=== PATIENT | female | born 1970 | race Caucasian/White ===

== ENCOUNTER 2024-08-05 11:01 | Outpatient (CLI) | payer OTHER, SELFPAY ==
--- OUTSIDE RECORDS SUMMARY | 2024-08-05 11:52 | XMS_ITS | Clinical Summary ---
Author Organization [facility] Address [address] [place] [address] Care Team Providers Care Ladle Mechanic Name Role Phone PcpNerissa Primary Care-Im/Fm-Hayden Leonardo Primary Care Provider Unavailable Source Comments [facility],non-owned Affiliates and Associated Physician Practices is amultiple site organization consisting of ambulatory clinics and hospital sitesin [place], [place], [place] and [place]. This disclosure is being madepursuant to the Care Everywhere program and may not contain all information available regarding this patient. Last updated 18.[facility] Allergies Active Allergy Reactions Criticality Noted Date Comments Tramadol Nausea and/or Vomiting 06/19/2012 Hydrocodone-Acetaminophen Nausea and/or Vomiting 06/19/2012 Azithromycin 02/03/2013 Medications * Be aware that medications may not be up to date on this document. Alwaysverify current medications with the patient. Medication Sig Dispensed Refills Start Date End Date Status Multiple Vitamin (MULTIVITAMIN ADULT PO) Active Cyanocobalamin (B-12 PO) Active calcium 500 mg tablet Take 500 mg by mouth 2 times daily with morning and evening meal Active levothyroxine (Synthroid) 137 MCG tablet TAKE 1 TABLET BY MOUTH EVERY DAY 90 tablet 10/21/2022 Active Active Problems Problem Noted Date Diagnosed Date Class 2 severe obesity due t o excess calories with serious comorbidity and body mass index (BMI) of 39.0 to 39.9 in adult 08/01/2020 Hypothyroidism Essential hypertension Resolved Problems Problem Noted Date Diagnosed Date Resolved Date Vitamin D deficiency 12/08/2017 020 Benign hypertension 09/13/2015 08/02/19 21 Snoring 09/13/2015 01/04/2020 Overview (09/13/2015): Patient defers sleep study Essential hypertension 12/13/201409/12 Smoking history 12/13/2014 01/04/2020 Weight gain 03/08/2014 02/29/2016 Family history of diabetes mellitus (DM) 03/08/2014 01/04/2020 Vulvovaginal candidiasis 03/08/2014 Thyroid disorder 06/19/2012 08/19/2013 Immunizations Name Administration Dates Next Due HEP B VACCINE, ADULT 3 DOSE 10/14/2007, 8,04/08/2007 INFLUENZA VACCINE 02/16/2017,02/02/2016 MMR 04/01/2007 Family History Medical History Relation Name Comments Diabetes Father Heart Disease Father Triple CABG in 60's Hypertension Father Cancer - Other Mother cervical Diabetes Mother Hypertension Mother Cancer - Other Sister breast Relation Name Status Comments Father Mother Sister Social History Tobacco Use Types Packs/Day Years Used Date Smoking Tobacco: Former Cigarettes 0.5 20 Smokeless Tobacco: Never Alcohol Use Standard Drinks/Week Comments No 0 (1 standard drink = 0.6 oz pur e alcohol) PHQ-2 Answer Date Recorded PHQ2 TOTAL SCORE 0 01/02/2021 Sex and Gender Information Value Date Recorded Sex Assigned at Not on file Gender Identity Not on file Sexual Orientation Not on file Last Filed Vital Signs Vital Sign Reading Time Taken Comments Blood Pressure 114/80 11/06/2021 9:51 AM CDT Pulse 71 11/06/2021 9:51 AM CDT Temperature 36.6 C (97.8 F) 01/02/2021 8:15 AM CDT Respiratory Rate 20 08/01/2020 9:11 AM CDT Oxygen Saturation 100% 11/06/2021 9:51 AM CDT Inhaled Oxygen Concentration - - Weight 65.3 kg (144 lb) 11/06/2021 9:51 AM CDT Height 167.6 cm (5' 6 ) 01/02/2021 8:15 AM CDT Body Mass Index 23.24 01/02/2021 8:15 AM CDT Plan of Treatment Health Maintenance Due Date Last Done Comments COLOGUARD (AGES 45-75) - COLON CA SCREENING 1970 COLON MONITORING 1970 COLONOSCOPY - COLON CA SCREENING 1970 CT COLONOGRAPHY - COLON CA SCREENING 1970 Colorectal Cancer Screening 1970 FIT - COLON CA SCREENING 1970 FLEX SIG - COLON CA SCREENING 1970 HIV SCREENING 1985 DTAP/TDAP/TD VACCINES (1 - Tdap) 1989 MAMMOGRAM 10/23/2017 10/23/2016, 09/27, 09/13/2015 (Declined) PNEUMOCOCCAL VACCINE 50+ (1 of 1 - PCV) 01/02/2020 ZOSTER VACCINE (1 of 2) 01/02/2020 PAP SMEAR 03/30/2023 03/30/2020 (Done Outside Per Patient), 09/13/2015 (Declined) LIPID TESTING 12/25/2023 12/24/2018 (Done Outside Per Report), 09/24/2016, 12/13/2014, Additional history exists COVID-19 VACCINE ( season) 2023 DEPRESSION SCREENING 04/28/2024 INFLUENZA VACCINE (Season Ended) 2024 02/16/2017, 02/02/2016 HEPATITIS B VACCINE Completed 10/14/2007, 05/13/2007, 04/08/2007 HEPATITIS C SCREENING Discontinued HIB VACCINE Aged Out No longer eligi ble based on patient's age to complete this topic HPV VACCINE Aged Out No longer eligi ble based on patient's age to complete this topic MENINGOCOCCAL (Group B) VACCINE SHARED DECISION-MAKING Aged Out No longer eligible based on patient's age to complete this topic MENINGOCOCCAL GROUPS A/C/Y/W VACCINE Aged Out No longer eligible based on patient's age to complete this topic PNEUMOCOCCAL VACCINE Aged Out No long er eligible based on patient's age to complete this topic Procedures Procedure Name Priority Date/Time Associated Diagnosis Comments MAMMO BILAT SCREENING Routine 10/23/2016 Screening mammogram, encounter for LIPID PROFILE Routine 09/24/2016 Hypothyroidism due to acquired atrophy of thyroid Benign hypertension from Last 3 Months or Most Recently Relevant to Health Maintenance Results * MAMMO SCREENING DIGITAL IMAGE BILAT (10/23/2016) Anatomical Region Laterality Modality Breast Bilateral Mammography Steph Hidalgo PA-C MAMMO ORDERABLES * LIPID PROFILE (09/24/2016) Blood BLOOD SPECIMEN / Unknown 09/24/2016 Steph Hidalgo PA-C LAB - CHEMISTRY [facility] OTHER LAB from Last 3 Months or Most Recently Relevant to Health Maintenance Care Teams Ladle Mechanic Relationship Specialty Start Date End Date PcpNerissa Primary Care-Im/Fm-Hayden Leonardo PCP - General 07/05/24
[2024-08-05 13:18] LABS: Alanine Aminotransferase 20 U/L (6-35); Albumin Level 4.4 g/dL (3.5-5.1); Alkaline Phosphatase 77 U/L (38-126); Anion Gap 8 mmol/L (4-12); Aspartate Amino Transferase 24 U/L (14-36); Bilirubin,Total 0.6 mg/dL (0.2-1.3); Blood Urea Nitrogen 20 mg/dL (7-17); Calcium 9.2 mg/dL (8.4-10.2); Carbon Dioxide 30 mmol/L (22-30); Chloride 104 mmol/L (98-107); Estimated Glomerular Filt Rate > 60; Glucose 78 mg/dL (65-110); Potassium 4.1 mmol/L (3.4-5.0); Sodium 142 mmol/L (137-145)
[2024-08-05 15:56] LABS: Prealbumin 20.5 mg/dL (17.6-36.0)
[2024-08-05 16:10] LABS: Iron 103 ug/dL (37-170)
[2024-08-09 15:42] LABS: Vitamin B1 17 nmol/L (8-30)
== END 2024-08-05 11:02 | disposition home or self-care (01) ==
LOC: ANHLAB 11:05
PROVIDERS: Visit Provider Surgery Plastic and Reconstructive Surgery
DX: R63.4 Abnormal weight loss (principal)
CPT/HCPCS: 36415; 80053; 83540; 84134; 84425

== ENCOUNTER 2024-08-27 00:42 | Day surgery (SDC) | payer OTHER, SELFPAY ==
[2024-08-17 11:15] VITALS: BMI 20.9
--- NOTE | 2024-08-17 11:22 | PC.NURSE ---
Report to the Outpatient Waiting Room, entrance under the green pavilion located off [facility], at time _0600_ on date _[id number]_. Planned Procedure Time: _0730_.? Time changes happen often and if your time is changed the preop area will call you the afternoon before. - You and your visitor will be asked to self-screen and do not enter if you have any COVID symptoms. Please call surgeon if you need to reschedule. - A mask is optional within the hospital at this time. Patients may have clear liquids (water, carbonated beverages, clear teas, apple juice) until 3 hours prior to surgery with a maximum of 20 ounces. - No food from midnight until time of surgery and no smoking, or chewing tobacco (or any form of nicotine). No chewing gum, candy or mints. Take only the following medications with a SIP of water on the morning of surgery: ___Levothyroxine____ DO NOT STOP ANY OF YOUR OTHER PRESCRIPTION MEDICATIONS PRIOR TO SURGERY EXCEPT THE FOLLOWING Hold all vitamins and supplements for 3 days per anesthesiologist. Medications to discontinue per physician Date to take last [id number]___[phone] Please no make-up, nail portuguese, hairspray, perfume, deodorant, or body powder the day of surgery.? No jewelry (including any body piercings) or valuables the day of surgery, leave them at home.? Please take a shower or bath the night before, or the morning of, surgery with an antibacterial soap.? Wear comfortable, loose fitting clothing.? - Jewelry must be removed prior to entering the operating room.? Rings and piercings that are not removed may be cut off. - The hospital will not accept responsibility for valuables.? - Please leave all valuables, including medications, at home the day of surgery. If you are going home after surgery, a licensed spotter driver must drive you home.? - NO public transportation without another adult if you receive anesthesia. - We recommend that an adult stay with you for 24 hours following discharge. - We also recommend that you do not drive, make important decision, drink alcoholic beverages, or take any drugs that were not prescribed by your health care provider for at least 24 hours after your discharge time. Follow any additional instructions given to you from your surgeon. Telephone instructions given to __Fern__and asked if any additional questions and then verbalized understanding. Patient advised to call surgeon office or pre surgery nurse liaison [phone] if any additional questions.
--- NOTE | 2024-08-26 15:04 | P.PNAN_ITS ---
Anes - Initial Pre Proc Eval Procedure: Operation Date: 08/27/24 07:30 Proposed Procedures p Naomi Stahl Abdominoplasty with Belt Lipectomy with Liposuction - MD sally Khan Bilateral Breast Augmentation, - MD sally Khna Bilateral Breast Mastopexy with GalaFlex, Bra Roll Excision - Lm Isbell MD Date/Time: 08/26/24 15:04 Surgeon: Lm Isbell MD Pre Op Diagnosis: skiin laxity, micromastia, breast ptosis Patient Data Age: 54 Gender: F Height: 1.68 m Weight: 59 kg Allergies Allergy/AdvReac Type Severity Reaction Status Date / Time morphine Allergy Intermediate Rash Verified 08/27/24 07:18 Home Medications ?Medication ?Instructions ?Recorded ?Confirmed ?Type levothyroxine 137 mcg tablet 137 mcg PO DAILY 08/17/24 08/27/24 History dpyfvjbe-vxwjjcft-[id number] 45 mg-folic 1 cap PO DAILY 08/17/24 08/27/24 History acid 800 mcg-vit K 120 mcg capsule (Bariatric Multivitamins) Patient hx anesthesia problems: none Family hx anesthesia problems: none Results Review: All pre-operative results and documents have been reviewed as part of the pre- operative evaluation. PMFSH Social History Social History Smoking status: Never smoker Living arrangements: with family Spiritual care concerns: No Anes - Eval Final PreProcedure Day of Procedure 08/26/24 15:04 Patient weight: normal Heart: regular rate and rhythm Lungs: clear to auscultation Airway: Mallampati scale class II Neurological: alert and oriented Last oral intake: >/= 8 hours ASA classification: II Emergent: no Anesthetic plan: proceed Anesthesia type and monitoring: general ETT and standard monitoring Results Review: All pre-operative results and documents have been reviewed as part of the pre- operative evaluation. Informed Consent: The patient's anesthetic plan and its attendant risks and benefits were discussed with the patient/family/POA. Questions were solicited and answers provided to the satisfaction of the patient/family/POA.
[2024-08-27] VITALS (16 sets, daily range): BP systolic 111–145; BP diastolic 70–97; PULSE 63–115; RESP 13–20; TEMP 36.1–37.7; O2SAT 92–100; BMI 21.9
--- OUTSIDE RECORDS SUMMARY | 2024-08-27 00:45 | XMS_ITS | Clinical Summary ---
Author Organization [facility] Address [address] [place] [address] Care Team Providers Care Medical Billing Manager Name Role Phone PcpNerissa Primary Care-Im/Fm-Hayden Leonardo Primary Care Provider Unavailable Source Comments [facility],non-owned Affiliates and Associated Physician Practices is amultiple site organization consisting of ambulatory clinics and hospital sitesin [place], [place], [place] and [place]. This disclosure is being madepursuant to the Care Everywhere program and may not contain all information available regarding this patient. Last updated 18.[facility] Allergies Active Allergy Reactions Criticality Noted Date Comments Tramadol Nausea and/or Vomiting 06/19/2012 Hydrocodone-Acetaminophen Nausea and/or Vomiting 06/19/2012 Azithromycin 02/03/2013 Medications * Be aware that medications may not be up to date on this document. Alwaysverify current medications with the patient. 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 Care Teams Medical Billing Manager Relationship Specialty Start Date End Date Nerissa Hutchins Primary Care-Im/Milady Leonardo PCP - General 07/05/24
[2024-08-27] MEDS: LACTATED RINGERS 1,000 ML 30 ML IV CONT ×2 (06:25→16:35)
[2024-08-27 06:30] LABS: Urine Cotinine NEGATIVE
[2024-08-27 06:35] LABS: Hematocrit 43.3 % (37.0-47.0); Hemoglobin 13.9 g/dL (12.0-15.0)
[2024-08-27] MEDS: TRANEXAMIC ACID 1,000MG/ISO100 1,000 MG/100 ML BAG 200 MG IVPB (06:40)
--- NOTE | 2024-08-27 07:00 | WPDHPUPDATE1 ---
History and Physical Update Update Date/Time: 08/27/24 07:00 History and Physical has been reviewed, including an updated exam of the patient. There are NO changes in the patient's condition. Risks, benefits, and alternatives have been discussed and questions answered. Patient agrees to proceed with procedure.
--- NOTE | 2024-08-27 07:36 | P.OP_ITS ---
Procedure Note - Detailed Date of Procedure 08/27/24 Pre-op Diagnosis skiin laxity, micromastia, breast ptosis Post-op Diagnosis Same Procedure Performed 1. Bilateral augmentation mastopexy with Galaflex 2. Bra roll excision (upper back) 3. Yrmiw-aj-njq belt lipectomy with suction lipectomy Surgeon Lm Isbell MD Anesthesia General Findings Bilateral Genia Falk SoftTouch 290cc Right: REF# [id number] SN [id number] Left: REF# [id number] SN [id number] Tissue removed: 2,258 grams Lipoaspirate: 500 cc Description of Procedure They are here today for the above procedures. Previously and again today the risks, benefits, alternatives were discussed in extensive detail. I wanted them to be very realistic about the risks involved as well as expectations. We discussed aftercare and what to monitor for. I was very upfront about the risks of wound breakdown leading to loss of skin, open wounds, and need for additional procedures with permanent abdominal deformity. We discussed DVT/PE risks and management. Made sure answered all of their questions to their satisfaction today and consent was obtained. They were marked in the preoperative holding area with their verification. The patient was taken to the operating room. [facility] A Rodriguez catheter was started. Posterior Placed prone on the operating room table with care taken to protect from injury. Prepped and draped in a standard sterile fashion. A surgical time-out was taken. Stab incisions were made and tumescent solution was infiltrated. Once adequate time was allowed for hemostasis a 5mm basket and 4mm keisha cannula were utilized to complete suction lipectomy based on S.A.F.E. technique in multiple planes and passes. Suction lipectomy continued to result based on pre-operative planning, intra-operative observation, and rolling pinch test which were in full agreement. Bra roll excision A 10 blade was used to make the upper incision and dissection was continued inferior elevating what we necessary for closure. This was closed with 3 point suture with 2-0 Vicryl followed 2-0 PDO strattafix, 3-0 stratafix ,running subcuticular 4-0 Monocryl, and tissue glue. Laterally maritza were placed for turning. Posterior body lift A 10 blade was used to make the upper incision and dissection was continued inferior elevating what we necessary for closure. I placed patient in slight jackknife position and excised intervening tissue. This was closed with 3 point suture with 2-0 Vicryl followed 2-0 PDO strattafix, 3-0 stratafix ,running subcuticular 4-0 Monocryl, and tissue glue. Laterally maritza were placed for turning. Breast Patient was then placed supine with care taken to protect from injury. She was prepped and draped in a standard sterile fashion. Tumescent was utilized laterally to provide field block Tegaderm nipple Walden were placed. A 15 blade used to make an incision just superior to the inframammary fold leaving a cusp of de-epithelized tissue at the t junction. Dissection was continued until the chest wall as identified. I incised the pectoralis major along its inferior border and completely released the inferior border leaving the medial border intact. I created a subpectoral pocket in the appropriate dimensions based on our preoperative planning for the implant. I then copiously irrigated with saline solution and verified a strict hemostasis. Next the use a triple antibiotic and Betadine containing solution to irrigate the pocket. I washed my gloves with the triple antibiotic and Betadine solution. We washed the implant immediately upon opening it with this solution and only opened it when we needed it. I used implant funnel and no-touch technique. The implant was introduced into the pocket using the funnel. Galaflex was soaking on the back table in a betadine solution. Trimmed and placed into the pocket. Having verified positioning of the implant this was closed using 2-0 PDS. I tailor tacked the breast into position. Placed her in a sitting position. Verified the nipple-areolar location based on preoperative planning as well as intraoperative observations and measurements in full agreement. Suction lipectomy was completed laterally with a 4mm keisha cannula. This was based on preoperative planning, intraoperative observation, and rolling pinch which was in full agreement. She was placed supine. I de-epithelialized the pedicle. I then removed the inferior central portion of the breast need making sure the implant was well protected. I elevated medial and lateral tissue flaps as well for planned closure. I closed along the IMF with 2-0 Stratafix. Along the vertical with 2-0 PDS. I closed around the areola with 3-0 strata fix. 3-0 Monocryl along the vertical. 3-0 Stratafix along the IMF. I finally closed everything with running subcuticular 4-0 Monocryl and tissue glue. Brijjit's used for vertical incision. Abdomen I placed the patient in a flexed position to verify the upper and lower markings would reach. I then placed supine. A thorough abdominal examination was completed. Stab incisions were made and tumescent solution infiltrated. Stab incisions were made and tumescent solution was infiltrated. Once adequate time was allowed for hemostasis a 5mm basket and 4mm keisha cannula were uti lized to complete suction lipectomy based on S.A.F.E. technique in multiple planes and passes. Suction lipectomy continued to result based on pre-operative planning, intra-operative observation, and rolling pinch test which were in full agreement. A 10 blade was used to make the upper incision. I continued dissection down to the level of fascia. Elevated just what was necessary for repair of the diastasis. I then again flexed the bed to verify the upper skin flap would reach the lower markings without tension. Once verified I placed her supine once again and a 10 blade used to make the lower incision. I elevated up to level the umbilicus and left the umbilicus intact on a well-vascularized stalk. The intervening tissue was removed. A 2 mm blunt cannula with 0.5% bupivacaine was injected deep to the fascia bilaterally. I plicated the diastasis recti using 0 PDO Stratafix barbed suture. This was in 2 separate layers using 2 separate sutures as well. After the patient was flexed (below) plicated the fascia with 0 PDO Stratafix in two separate layers. This was both supraumbilical and infraumbilical. The patient was flexed and starting from superior to inferior began plication using 2-0 Vicryl to obliterate all space in a standard progressive tension fashion. At the umbilicus I marked out the location of the skin and inset this with 3-0 Monocryl and 4-0 Vicryl. I continued the remainder of the plication using 2-0 Vicryl until I reached my lower planned scar line. I trimmed any excess skin of the upper flap making sure this was a tension-free closure. 15 B culp drain was placed. I then approximated using a 3 point suture with 2-0 Vicryl followed by 2-0 PDO Stratafix, 3-0 Stratafix ,running subcuticular 4-0 Monocryl, and tissue glue. Fluffs, abdominal binder, and surgical bra were placed. The patient was transferred to the bed in a flexed position. [place] and taken to the PACU without difficulty. All instrument and sponge counts were correct at the end of the case. Estimated Blood Loss 150 Drains Yes (15 Kirt) Packing No Pathology None sent Complications No immediate complications Condition Stable Disposition PACU
[2024-08-27] MEDS: ceFAZolin 2 GM/D5W 50 ML 2 GM/50 ML BAG IVPB (07:40)
[2024-08-27] MEDS: NACL 0.9% IRRIG POUR BOTTLE 900 ML, GENTAMICIN SULFATE INJ 160 MG, ceFAZolin 2 GM, POVI... IRRIGATION (09:04)
[2024-08-27] MEDS: LACTATED RINGERS IRRIG 1,000 ML, LIDOCAINE 1% LOCAL INJ 50 ML, EPINEPHrine HCL INJ 1 MG... INFILTRATE (09:05)
[2024-08-27] MEDS: ceFAZolin SODIUM 1 GM VIAL 2 GM IV PUSH (11:48)
--- NOTE | 2024-08-27 18:50 | PC.NURSE ---
received report from PACU, Daya VERNON, @[phone] 08/27/24.
--- NOTE | 2024-08-27 20:00 | PC.NURSE ---
This patient, Ruby Jules, was admitted to [facility] Surg Room 303-01. Patient/family oriented to hospital policies and general routines including ID bracelet, bed and alarms, visiting hours, pain management, procedures, bathroom and other care routines, personal items, smoking policy, room service/diet, and visiting hours. Information on how to activate the Rapid Response Team has been discussed. Patient/Family are encouraged to report perceived risks to care and to ask questions if they do not understand what they are told or what they should do.
[2024-08-27 20:26] LABS: Mean Platelet Volume 9.1 fl (7.4-10.4); Platelet Count Result 206 k/mm3 (150-375)
[2024-08-27] MEDS: KETOROLAC 10 MG TABLET PO (20:55)
[2024-08-27] MEDS: ONDANSETRON INJ 4 MG/2 ML VIAL IV PUSH (20:58)
[2024-08-27] MEDS: LACTATED RINGERS 1,000 ML 125 ML IV CONT (21:02)
[2024-08-27] MEDS: carisoprodoL (*CRX) 350 MG TABLET PO (21:03)
[2024-08-27] MEDS: DOCUSATE SODIUM 100 MG CAPSULE PO (21:04)
[2024-08-27] MEDS: ENOXAPARIN 40 MG/0.4 ML SYRINGE SUB-Q (22:30)
[2024-08-27] MEDS: oxyCODONE/ACETAMINOPHEN (*CRX) 5-325 MG TABLET PO (22:51)
[2024-08-28 00:05] VITALS: BP 102/61; PULSE 89; RESP 20; TEMP 36.4; O2SAT 95
[2024-08-28] MEDS: KETOROLAC 10 MG TABLET PO ×2 (03:43→08:36)
[2024-08-28 05:05] VITALS: BP 114/68; PULSE 89; RESP 20; TEMP 35.9; O2SAT 97
[2024-08-28] MEDS: LEVOTHYROXINE SODIUM 25 MCG TABLET PO (05:38)
[2024-08-28] MEDS: LEVOTHYROXINE SODIUM 112 MCG TABLET PO (05:38)
[2024-08-28] MEDS: carisoprodoL (*CRX) 350 MG TABLET PO (05:38)
[2024-08-28 05:55] LABS: Mean Platelet Volume 9.4 fl (7.4-10.4); Platelet Count Result 187 k/mm3 (150-375)
[2024-08-28 06:09] LABS: Estimated CRCL calculation 87 ml/min; Estimated Glomerular Filt Rate > 60
--- NOTE | 2024-08-28 06:47 | WPDPN ---
Progress Note: A&P Assessment and Plan (1) Skin laxity: Code(s): L57.4 - Cutis laxa senilis Status: Acute Assessment and Plan: Doing well after bilateral augmentation mastopexy with galaflex, bra roll excision, and [id number] progressive tension abdominoplasty with suction lipectomy. Will discharge home. Today we had a lengthy discussion about the care. Activity limitations. What to monitor for. What is an emergency and when to dial 911 / proceed to the ER. This was a lengthy open ended conversation making sure they were well informed. Answered all their questions. They voiced a clear understanding. Will discharge home. Call with any questions or concerns in the meantime. (2) Localized adiposity: Code(s): E65 - Localized adiposity Status: Acute (3) Breast ptosis: Code(s): N64.81 - Ptosis of breast Status: Acute (4) Micromastia: Code(s): N64.82 - Hypoplasia of breast Status: Acute (5) History of weight loss: Code(s): Z87.898 - Personal history of other specified conditions Status: Acute Subjective Date/time seen: 08/28/24 06:47 Interval history: Doing well after bilateral augmentation mastopexy with galaflex, bra roll excision, and [id number] progressive tension abdominoplasty with suction lipectomy. Ambulating. Pain controlled. No nausea / vomiting. No fevers / chills. No shortness of breast. No chest pain. No calf tenderness. Review of Systems Review of Systems: All systems reviewed & are unremarkable except as noted in HPI and below Exam Narrative: Alert & Oriented NOD Respiratory unlabored Bilateral breasts are soft. No signs of infection. No hematoma. No seroma. Good color and capillary refill. Abdomen is healing well. No signs of infection. No hematoma. No seroma. Good color and capillary refill. No calf tenderness. Negative Iglesia's Objective Data Vital Signs Vital Signs: Vital Signs - 24 hr 08/27/24 16:35 08/27/24 16:50 08/27/24 17:05 Temperature 37.7 C H Pulse Rate 112 H 115 H 99 Respiratory Rate 16 13 15 Blood Pressure 121/75 128/87 140/88 Pulse Oximetry 95 98 99 Oxygen Delivery Simple Face Mask Simple Face Mask Simple Face Mask Oxygen Flow Rate 6 8 8 08/27/24 17:20 08/27/24 17:35 08/27/24 17:50 Temperature Pulse Rate 104 H 97 106 H Respiratory Rate 15 14 18 Blood Pressure 133/87 125/79 145/97 H Pulse Oximetry 94 93 92 Oxygen Delivery Room Air Nasal Cannula Nasal Cannula Oxygen Flow Rate 2 2 08/27/24 18:05 08/27/24 18:20 08/27/24 18:35 Temperature 36.1 C L Pulse Rate 95 98 92 Respiratory Rate 16 16 14 Blood Pressure 127/84 130/77 121/75 Pulse Oximetry 94 95 95 Oxygen Delivery Nasal Cannula Nasal Cannula Nasal Cannula Oxygen Flow Rate 2 2 2 08/27/24 18:50 08/27/24 19:05 08/27/24 19:25 Temperature 36.2 C L Pulse Rate 92 91 99 Respiratory Rate 15 14 18 Blood Pressure 112/74 111/79 132/79 Pulse Oximetry 97 98 97 Oxygen Delivery Nasal Cannula Nasal Cannula Oxygen Flow Rate 2 2 08/27/24 19:40 08/27/24 20:15 08/27/24 21:10 Temperature 36.2 C L 36.1 C L 36.1 C L Pulse Rate 95 97 96 Respiratory Rate 16 20 20 Blood Pressure 130/73 121/74 125/70 Pulse Oximetry 99 98 99 Oxygen Delivery Oxygen Flow Rate 08/28/24 00:05 08/28/24 05:05 Temperature 36.4 C 35.9 C L Pulse Rate 89 89 Respiratory Rate 20 20 Blood Pressure 102/61 114/68 Pulse Oximetry 95 97 Oxygen Delivery Oxygen Flow Rate Intake/Output Intake/Output: Intake & Output 08/25/24 08/26/24 08/27/24 08/28/24 23:59 23:59 23:59 23:59 Intake Total 300 1850 Output Total 425 1270 Balance -125 580 Meds/Results Medications: Active Medications Generic Name Dose Route Start Last Admin Trade Name Freq PRN Reason Stop Dose Admin Carisoprodol 350 mg 08/28/24 06:00 08/28/24 05:38 Carisoprodol (*Crx) 350 Mg Tablet PO 350 mg Q6HR IVAN Administration Diazepam 5 mg 08/27/24 19:11 Diazepam (*Crx) 5 Mg Tablet PO TID PRN Anxiety Docusate Sodium 100 mg 08/27/24 21:00 08/27/24 21:04 Docusate Sodium 100 Mg Capsule PO 100 mg Q12HR IVAN Administration Enoxaparin Sodium 40 mg 08/27/24 22:00 08/27/24 22:30 Enoxaparin 40 Mg/0.4 Ml Syringe SUB-Q 40 mg DAILY@2200 [facility] Administration Hydromorphone HCl 0.5 mg 08/27/24 19:11 Hydromorphone Hcl Inj (*Crx) 2 Mg/Ml Vial IV PUSH Q3H PRN Pain Rated 7-10 Lactated Ringer's 1,000 mls @ 125 mls/hr 08/27/24 19:11 08/28/24 05:21 Lr - Lactated Ringers Iv IV CONT Infused .Q8H [facility] Infusion Ketorolac Tromethamine 10 mg 08/28/24 03:00 08/28/24 03:43 Ketorolac 10 Mg Tablet PO 08/29/24 15:01 10 mg Q6H [facility] Administration Levothyroxine Sodium 25 mcg 08/28/24 06:30 08/28/24 05:38 Levothyroxine Sodium 25 Mcg Tablet PO 25 mcg DAILY@0630 [facility] Administration Levothyroxine Sodium 112 mcg 08/28/24 06:30 08/28/24 05:38 Levothyroxine Sodium 112 Mcg Tablet PO 112 mcg DAILY@0630 [facility] Administration Multivitamins/Minerals 1 tab 08/28/24 12:00 Multivitamins /C Lutein (Centrum Silver) Tablet *Bkc PO DAILY@1200 IVAN Ondansetron HCl 4 mg 08/27/24 19:11 08/27/24 20:58 Ondansetron Inj 4 Mg/2 Ml Vial IV PUSH 4 mg Q6H PRN Administration Nausea Oxycodone/Acetaminophen 1 - 2 tablet 08/27/24 19:11 08/27/24 22:51 Oxycodone/Acetaminophen (*Crx) 5-325 Mg Tablet PO 2 tablet Q6H PRN Administration Pain Rated 3-10 Labs Labs: Laboratory Results - last 24 hr 08/27/24 08/28/24 20:20 05:22 Plt Count 206 187 MPV 9.1 9.4 Creatinine 0.59 L Estim Creat Clear Calc 87 Estimated GFR > 60
--- NOTE | 2024-08-28 07:09 | PM.DS ---
DS: Admitting Diagnosis Discharge Date 08/28/2024 Admitting Diagnosis Skin laxity Localized adiposity Breast ptosis Micromastia History of weight loss DS: Discharge Diagnosis Discharge Diagnosis (1) Skin laxity: Code(s): L57.4 - Cutis laxa senilis Status: Acute (2) Localized adiposity: Code(s): E65 - Localized adiposity Status: Acute (3) Breast ptosis: Code(s): N64.81 - Ptosis of breast Status: Acute (4) Micromastia: Code(s): N64.82 - Hypoplasia of breast Status: Acute (5) History of weight loss: Code(s): Z87.898 - Personal history of other specified conditions Status: Acute DS: Summary Hospital Course Hospital Course: She has done very well after bilateral augmentation mastopexy with galaflex, bra roll excision, and [id number] progressive tension abdominoplasty with suction lipectomy. Ambulting. Pain controlled. Tollerating PO. Will discharge home. Time Spent with Patient Time attestation: Total time spent providing and/or coordinating discharge services: Exam Narrative: Alert & Oriented NOD Respiratory unlabored Bilateral breasts are soft. No signs of infection. No hematoma. No seroma. Good color and capillary refill. Abdomen is healing well. No signs of infection. No hematoma. No seroma. Good color and capillary refill. No calf tenderness. Negative Iglesia's DS: Data Data Completed and Pending Labs on day of discharge: Labs from last 24 hours 08/28/24 08/27/24 05:22 20:20 Plt Count 187 206 MPV 9.4 9.1 Creatinine 0.59 L Estim Creat Clear Calc 87 Estimated GFR > 60 Discharge Plan Discharge Attending physician on discharge: Lm Isbell Discharging Clinician: Lm Isbell Anticipated Discharge Date/Time: 08/28/24 10:07 Patient Disposition: Home Activity: may shower Diet: regular Wound Care Instructions: follow printed instructions Discharge Instructions: POST OPERATIVE DISCHARGE INSTRUCTIONS LM ISBELL M.D. [facility] [address] [place] [address] [address] for 24 hours after anesthesia and while you are taking pain medication. Take all prescribed medication as directed Diet as tolerated. No lifting or activity that raises blood pressure for 48 hours. Regular walking / ambulation. May shower 24 hours after surgery. Once you shower do not take pain medication before showering as the combination of medication and heat may cause you to feel dizzy or pass out. No pools or tubs for 2 weeks. Slowly stand up straight as tolerated. No straining or lifting more than 20 pounds. If no bowel movement within 24 hours may use laxative. Call with any questions or concerns. Dressing Care: Continue abdominal binder / foam and surgical bra 23 hours per day. If you have any questions or concerns, please call the office . If it is after hours you will be directed to the color television console monitor exchange. Shortness of breath, chest pain, or other medical emergency dial 911 / proceed to the Emergency Room. Patient Language: Slovenian Stand Alone Forms: General Discharge Instructions Follow-up/Referrals: Lm Isbell MD [Physician] - 1 Week Discharge Medications: Continued levothyroxine 137 mcg tablet 137 mcg PO DAILY Bariatric Multivitamins 45 mg iron- 800 mcg-120 mcg capsule 1 cap PO DAILY Date of admission: 08/27/24 19:11 Primary Care Provider: UNKNOWN,DOCTOR Admitting Provider: Lm Isbell Attending physician on admission: Lm Isbell Condition: Stable
[2024-08-28 08:02] VITALS: O2SAT 93
[2024-08-28 08:05] VITALS: BP 110/60; PULSE 100; RESP 16; TEMP 37.5; O2SAT 95
[2024-08-28] MEDS: DOCUSATE SODIUM 100 MG CAPSULE PO (08:38)
[2024-08-28] MEDS: oxyCODONE/ACETAMINOPHEN (*CRX) 5-325 MG TABLET PO (10:19)
--- OUTSIDE RECORDS SUMMARY | 2024-08-28 16:02 | XMS_ITS | Clinical Summary ---
Author Organization [facility] Address [address] [place] [address] Care Team Providers Care Apprentice Funeral Director Name Role Phone PcpNerissa Primary Care-Im/Fm-Hayden Leonardo Primary Care Provider Unavailable Source Comments [facility],non-owned Affiliates and Associated Physician Practices is amultiple site organization consisting of ambulatory clinics and hospital sitesin [place], [place], [place] and [place]. This disclosure is being madepursuant to the Care Everywhere program and may not contain all information available regarding this patient. Last updated 18.[facility] Allergies Active Allergy Reactions Criticality Noted [...] on file Legal Sex Female 8:57 PM [facility] Gender Identity Not on file Sexual Orientation [...] Relevant to Health Maintenance Insurance [facility] Care Teams Apprentice Funeral Director Relationship Specialty Start Date End Date Nerissa Hutchins Primary Care-Im/Milady Leonardo PCP - General 07/05/24
== END 2024-08-28 11:05 | disposition home or self-care (01) ==
LOC: ANHSURGERY 07:42 → ANH3MEDSUR 08-28 07:08
PROVIDERS: Anesthesiology; Visit Provider Surgery Plastic and Reconstructive Surgery
PROC: (CPT 19316; principal; 2024-08-27 07:30)
PROC: (CPT 19316; 2024-08-27 07:30)
PROC: (CPT 19316; 2024-08-27 07:30)
DX: Z41.1 Encounter for cosmetic surgery (principal); N64.82 Hypoplasia of breast; N64.81 Ptosis of breast; L57.4 Cutis laxa senilis; E07.9 Disorder of thyroid, unspecified; Z79.1 Long term (current) use of non-steroidal anti-inflammatories (NSAID); Z98.890 Other specified postprocedural states; Z98.84 Bariatric surgery status; Z87.898 Personal history of other specified conditions
CPT/HCPCS: 19316; 15777 ×2; 15839; 15877; 15830; 15847; 36415; 80307; 82565; 85014; 85018; 85049; A9270; J0171; J0690; J1100; J1171; J1200; J1580; J1650; J2003; J2004; J2250; J2405; J2704; J3010; J7120